=== PATIENT | female | born 1940 | race Hispanic/Latino ===

== ENCOUNTER 2019-05-04 17:35 | Observation (INO) | payer MEDICARE ==
[2019-05-04 18:04] LABS: #Eosinphils 0.5 thou/uL (0.0-0.7); #Monocytes 0.8 thou/uL (0.11-0.59); #Neutrophils 3.3 thou/uL (1.40-6.50); %Basophils 0.4 % (0.0-1.0); %Eosinophils 5.5 % (0.0-10.0); %Lymphocytes 46.8 % (21.0-51.0); %Monocytes 9.2 % (0.0-10.0); %Neutrophils 38.2 % (42.0-75.0); Hemoglobin 14.8 g/dL (12.0-16.0); Mean Corpuscular HGB CONC 35.2 g/dL (32.0-36.0); Mean Corpuscular Hemoglobin 31.2 pg (27.0-31.0); Mean Corpuscular Volume 88.5 fL (78.0-98.0); Mean Platelet Volume 9.8 fL (7.4-10.4); Platelet Count 194 thou/uL (130-400); RBC Distribution Width 12.2 % (11.5-14.5); Red Blood Cell (RBC) Count 4.74 mill/uL (4.20-5.40); White Blood Cell (WBC) Count 8.5 thou/uL (4.8-10.8)
--- NOTE | 2019-05-04 18:22 | RAD ---
Chest one view HISTORY: Chest pain. COMPARISON: 10/11/2016. FINDINGS: Cardiac silhouette is magnified by projection. Pulmonary vasculature is unremarkable. Media stinum is midline with aortic calcification. No lobar consolidation or evidence of pneumothorax. Soft tissues prominence over the right paratracheal level of the upper mediastinum is stable on exams dating back to 2012. IMPRESSION: No active cardiopulmonary abnormalities are demonstrated. Atherosclerosis.
[2019-05-04 18:23] LABS: CK (CPK) 82 U/L (29-168); Lipase 56 U/L (8-78)
[2019-05-04 18:30] LABS: ALT (SGPT) 18 U/L (8-55); AST (SGOT) 22 U/L (5-34); Albumin 4.7 g/dL (3.4-4.8); Alkaline Phosphatase 220 U/L (40-110); Anion Gap 19 mmol/L (10-20); BUN (Urea Nitrogen) 21 mg/dL (9.8-20.1); Bilirubin, Total 0.4 mg/dL (0.2-1.2); Calc. Creatinine Clearance 0 mL/min (70-130); Calcium 9.5 mg/dL (7.8-10.44); Carbon Dioxide 19 mmol/L (23-31); Chloride 106 mmol/L (98-107); Estimated GFR-MDRD 47; Globulin 3.5 g/dL (2.4-3.5); Glucose 143 mg/dL (83-110); Potassium 3.7 mmol/L (3.5-5.1); Protein, Total 8.2 g/dL (6.0-8.3); Sodium 140 mmol/L (136-145)
[2019-05-04 19:54] LABS: Bilirubin Negative (Negative); Blood, Urine Negative (Negative); Clarity Clear (Clear); Glucose, Urine (Dipstick) Normal (Negative); Leukocyte 75 Leu/uL (Negative); Nitrite Negative (Negative); Protein, Urine (Dipstick) 20 mg/dL (Neg-Trace); RBC/HPF 0-3 HPF (0-3); Squamous Epithelial 0-3 HPF (0-3); Urobilinogen Normal mg/dL (Less than 2)
[2019-05-04 19:55] LABS: Bacteria/HPF 1+ HPF (None Seen)
[2019-05-04] MEDS ORDERED: Acetaminophen 500 MG TAB ONE (21:06)
[2019-05-04 21:27] LABS: Troponin I 0.033 ng/mL (< 0.028)
[2019-05-04] MEDS ORDERED: Nitroglycerin 2% Ointment 1 INCH/1 GM Packet ONE (21:46)
[2019-05-04] MEDS ORDERED: Aspirin Chewable 81 MG TAB ONE (21:46)
[2019-05-04] MEDS ORDERED: cefTRIAXone\\ROCEPHIN 2 GM VIAL ONE (22:32)
[2019-05-04] MEDS ORDERED: Ondansetron ODT 4 MG TAB SL PRN (23:13)
[2019-05-04] MEDS ORDERED: Ondansetron PF 4 MG/2 ML Vial IVP PRN (23:13)
[2019-05-04 23:22] VITALS: BMI 23.6
[2019-05-04] MEDS ORDERED: cloNIDine 0.1 MG TAB PO SCH (23:45)
[2019-05-05 00:03] LABS: Troponin I 0.015 ng/mL (< 0.028)
[2019-05-05] MEDS ORDERED: Ondansetron PF 4 MG/2 ML Vial IVP PRN (01:05)
[2019-05-05] MEDS ORDERED: Ondansetron ODT 4 MG TAB PO PRN (01:05)
[2019-05-05] MEDS ORDERED: Sodium Chloride 0.9% 1,000 ML IV SCH (01:15)
--- NOTE | 2019-05-05 02:42 | HP ---
TIME OF ASSESSMENT: 2300 hours. CHIEF COMPLAINT: Chest pain. HISTORY OF PRESENT ILLNESS: Ms. Melton is a pleasant 79-year-old woman, who presented to the emergency department today due to complaints of substernal chest pain. The patient states that this started yesterday evening while she was watching TV. She reports a pressure in the center of her chest. She thought it might be gas, therefore, she drinks some sparkling water. It seem to ease slightly. Today, the patient states that the pain has been persistent, but intermittent. She also reports having some associated shortness of breath with exertion. She has noted throughout the day that any time she eats or drinks, she experiences discomfort in the center of her chest as if she is choking and it takes her breath away. The patient states that due to that reason, she has not had very much to eat or drink today. She states yesterday she was able to have pork chop dinner without any trouble swallowing. The patient states that on occasion for the last several months, she has had some issues with dysphagia. Denies any regurgitation of food. Denies any nausea or vomiting. Has an occasional cough, but denies any hemoptysis or sputum. No recent fevers, chills, or sweats. Denies any abdominal pain or cramping. She has been moving her bowels as normal. Denies any urinary symptoms. In the emergency department, she underwent an EKG which demonstrated sinus tachycardia with a heart rate of 103. She was noted to have PACs. ST segments and T-waves were normal. She had a chest x-ray done, which showed no intrathoracic abnormalities. She had urinalysis done and noted to have UTI, therefore, started on Rocephin. The patient had a significantly elevated blood pressure of 229/95. She was given Nitro-Bid, as well as aspirin 324 mg and 1 g of Tylenol. Her blood pressure did improve to 159/76. She is being admitted for ACS rule out. PAST MEDICAL HISTORY: 1. Peripheral arterial disease. 2. Hypertension. 3. History of TIA. 4. Hyperlipidemia. 5. Finch's palsy. 6. Anxiety. PAST SURGICAL HISTORY: 1. Stents in the left leg in October 2013. 2. Blunt procedure in July 2014 of the left leg due to recurring blockage. SOCIAL HISTORY: The patient lives with her family. Denies any alcohol use. She previously smoked cigarettes. Denies any drug use. ALLERGIES: NO KNOWN DRUG ALLERGIES. CURRENT MEDICATIONS: 1. Clonidine. 2. Spironolactone. 3. Amlodipine. 4. Clopidogrel. 5. Pravastatin. 6. Aspirin. 7. Lasix. PHYSICAL EXAMINATION: GENERAL: The patient appears well developed, well nourished, is in no acute distress. VITAL SIGNS: Temperature 97.9, pulse 73, respirations 12, O2 saturation 97% on room air, and blood pressure 179/82. HEENT: Normocephalic and atraumatic. Pupils are equal, round, and reactive to light. Sclerae icterus. Oropharynx is clear. NECK: Supple. Full range of motion. No lymphadenopathy. LUNGS: Clear to auscultation. CARDIAC: Regular rate and rhythm. ABDOMEN: Soft, nontender, and nondistended. Normoactive bowel sounds present. No guarding or rigidity. EXTREMITIES: No lower leg swelling or edema. NEUROLOGIC: Alert and oriented x3. SKIN: Warm and dry. LABORATORY DATA: White count 8.5, hemoglobin 14.8, hematocrit 42, platelets 194 , neutrophils 38.2. Sodium 140, potassium 3.7, BUN 21, creatinine 1.12, GFR 47, glucose 143, calcium 9.5, total bilirubin 0.4, AST 22, ALT 18, alkaline phosphatase 220, CK 82, troponin negative, second troponin 0.033, third troponin 0.015. BNP 97.6, albumin 4.7, lipase 56. Urinalysis notable for 75 leukocyte esterase, 7 to 10 white blood cells, and 1+ bacteria. IMAGING DATA: As mentioned above in HPI. IMPRESSION AND PLAN: Ms. Melton is a pleasant 79-year-old woman, who is being admitted for the following. 1. Acute coronary syndrome rule out. The patient is complaining of substernal chest pain that started yesterday evening, but in retrospect, she states that has been going on intermittently for the last several days along with some shortness of breath on exertion. The patient seems to feel that the pain is exacerbated with eating or drinking and states that it feels like something is stuck in her chest. Troponins have been trended. She has a history of coronary artery disease, hyperlipidemia and hypertension, therefore, is at high risk. It has been over two years since her last stress test. We will go ahead and order stress test for the morning. BNP normal. However, the patient did report some shortness of breath with exertion. An echo has been requested. Chest x-ray without any acute changes. It appears there were previously seen soft tissue prominence over the right peritracheal level of the upper mediastinum, which is stable compared to studies done in 2013. Further imaging to be decided by Day Team. I did place a consultation for speech eval to assess her swallowing. She may benefit from barium swallow study given her complaints of dysphagia and odynophagia. 2. Hypertension. The patient has not received her home medications this evening. We will reconcile her home medications and monitor blood pressure. P.r.n. medications to be used for further control of her blood pressure. 3. Hyperlipidemia. Resume home medications once verified. 4. Gastrointestinal prophylaxis with famotidine. 5. Urinary tract infection. Urine culture pending. We will continue antibiotics. 6. Deep venous thrombosis prophylaxis with mechanical SCDs. 7. Code status full. Surrogate decision maker is her son, Yunier Melton. The patient's case was discussed with Dr. Robertson, who agrees with plan of care as described above. Job ID: [id number] MTDD
[2019-05-05 03:12] LABS: #Basophils 0.1 thou/uL (0.0-0.2); #Eosinphils 0.4 thou/uL (0.0-0.7); #Lymphocytes 3.1 thou/uL (1.20-3.40); #Monocytes 0.8 thou/uL (0.11-0.59); #Neutrophils 3.1 thou/uL (1.40-6.50); %Basophils 0.9 % (0.0-1.0); %Eosinophils 5.3 % (0.0-10.0); %Lymphocytes 41.6 % (21.0-51.0); %Monocytes 10.1 % (0.0-10.0); %Neutrophils 42.2 % (42.0-75.0); Hemoglobin 13.3 g/dL (12.0-16.0); Mean Corpuscular HGB CONC 35.7 g/dL (32.0-36.0); Mean Corpuscular Hemoglobin 31.7 pg (27.0-31.0); Mean Platelet Volume 9.2 fL (7.4-10.4); Platelet Count 181 thou/uL (130-400); RBC Distribution Width 12.3 % (11.5-14.5); Red Blood Cell (RBC) Count 4.19 mill/uL (4.20-5.40); White Blood Cell (WBC) Count 7.4 thou/uL (4.8-10.8)
[2019-05-05 03:37] LABS: Troponin I 0.011 ng/mL (< 0.028)
[2019-05-05 03:39] LABS: Anion Gap 14 mmol/L (10-20); BUN (Urea Nitrogen) 19 mg/dL (9.8-20.1); Calc. Creatinine Clearance 51 mL/min (70-130); Calcium 8.9 mg/dL (7.8-10.44); Carbon Dioxide 22 mmol/L (23-31); Cardiac Risk 3.2 (Less than 4.5); Chloride 109 mmol/L (98-107); Cholesterol 150 mg/dl (< 200 Desired); Estimated GFR-MDRD 60; Glucose 114 mg/dL (83-110); HDL Cholesterol 47 mg/dL (>60 Neg Risk); LDL Cholesterol, Calculated 82 mg/dL; Potassium 3.5 mmol/L (3.5-5.1); Sodium 141 mmol/L (136-145); Triglycerides 107 mg/dL (Less than 150)
[2019-05-05] MEDS ORDERED: Aspirin 325 MG TAB PO SCH (08:00)
[2019-05-05] MEDS ORDERED: Furosemide 20 MG TAB PO SCH (09:00)
[2019-05-05] MEDS ORDERED: Pravastatin Sodium 20 MG TAB PO SCH (09:00)
[2019-05-05] MEDS ORDERED: Lorazepam 2 MG/ML VIAL SLOW IVP SCH (09:00)
[2019-05-05] MEDS ORDERED: Aspirin 81 mg Enteric Coated Tablet PO SCH (09:00)
[2019-05-05] MEDS ORDERED: Amlodipine 10 MG TAB PO SCH (09:00)
[2019-05-05] MEDS ORDERED: Gabapentin 300 MG CAP PO SCH (09:00)
[2019-05-05] MEDS ORDERED: Lisinopril 20 MG TAB PO SCH (09:00)
[2019-05-05] MEDS ORDERED: Famotidine/PF 20 mg/2ml Vial SLOW IVP SCH (09:00)
[2019-05-05] MEDS ORDERED: cloNIDine 0.1 MG TAB PO SCH (09:00)
[2019-05-05 11:50] VITALS: BP 141/64; TEMP 98
[2019-05-05] MEDS ORDERED: ADENOSINE 60 MG/20 ML VIAL ONE (15:20)
--- NOTE | 2019-05-05 15:57 | NM ---
CARDIAC SPECT: HISTORY: An 79-year-old female with chest pain, coronary artery disease, stent placement, hypertensio n, and dyslipidemia and peripheral artery disease. TECHNIQUE: A myocardial perfusion scan was performed using the single-isotope 1-day protocol with Technetium 99m sestamibi. Nine mCi were injected intravenously for the rest exam followed by 28 mCi for the stress study. Pharmacologic stress with adenosine is monitored and interpreted by Dr. Alexis. FINDINGS: Homogeneous tracer distribution is seen in the myocardial segments on stress and rest images without fixed or reversible defects. GATED SPECT LVEF: 82%. WALL MOTION EXAM: Normal. IMPRESSION: Normal myocardial perfusion scan. POS: TPC
[2019-05-05] MEDS ORDERED: Mirtazapine 15 MG TAB PO SCH (21:00)
[2019-05-05] MEDS ORDERED: Non-Formulary Item 1 EACH (Amlodipine Besylate/Benazepril [Amlodipine Besylate/Benazepril PO SCH (21:00)
[2019-05-05] MEDS ORDERED: cefTRIAXone\\ROCEPHIN 2 GM in Sodium Chloride 0.9% 100 ML IVPB SCH (22:00)
--- NOTE | 2019-05-06 12:21 | DIS ---
DATE OF ADMISSION: 05/04/2019 DATE OF DISCHARGE: 05/05/2019 PRIMARY CARE PROVIDER: Hermilo Elmore MD DISCHARGE DIAGNOSES: 1. Chest pain. 2. Chest pain most likely secondary to musculoskeletal etiology. CONDITION OF PATIENT ON THE DAY OF DISCHARGE: Stable. I assessed Ms. Melton on the day of discharge. She denies any chest pain or shortness of breath. Vital signs are stable. S1 and S2 are heard, regular. Lungs are clear to auscultation bilaterally. HOSPITAL COURSE: Ms. Melton is a pleasant 79-year-old lady, who was admitted to [facility] on May 04, 2019, for chest pain. Please refer to Ms. Alarcon's history and physical note, dated May 04, 2019, for further details. She was also diagnosed with urinary tract infection. She was treated with antibiotics. Chest pain resolved. She had a nuclear stress test, which was normal. Left ventricular ejection fraction was 82%. She also had pulmonary embolism ruled out with a negative D-dimer. She was discharged home in a stable condition. On the day of discharge, she has white count of 7400, hemoglobin 13.3, and platelet count 181,000. Sodium 141, potassium 3.5, and creatinine 0.91. TSH was normal during this hospitalization. Fasting lipid profile showed triglycerides 107, cholesterol 150, LDL cholesterol 82, and HDL cholesterol 47. Many thanks for allowing me to participate in your patient's care. Please feel free to contact me with any questions or concerns. DISCHARGE DESTINATION: Home. Job ID: [id number] MTDD
== END 2019-05-05 19:33 | disposition home or self-care (01) ==
LOC: ERS 17:35 → 2SW 23:12
PROVIDERS: ADMIT Internal Medicine; ATTEND Internal Medicine
DX: R07.9 Chest pain, unspecified (principal); N39.0 Urinary tract infection, site not specified; E78.5 Hyperlipidemia, unspecified; I73.9 Peripheral vascular disease, unspecified; I10 Essential (primary) hypertension; F41.9 Anxiety disorder, unspecified; Z79.02 Long term (current) use of antithrombotics/antiplatelets; Z79.82 Long term (current) use of aspirin; Z79.899 Other long term (current) drug therapy; Z86.73 Personal history of transient ischemic attack (TIA), and cerebral infarction without residual deficits; Z87.891 Personal history of nicotine dependence
CPT/HCPCS: 71045; 78452; 80048; 80053; 80061; 82550; 83690; 83735; 83880; 84443; 84484 ×3; 85025 ×2; 85379; 87077; 87086; 93005; 93017; 93306; 96365; 99285; A9500; 36415; 81003; 81015; G0378; J0153; J0696; J2060; S0028

== ENCOUNTER 2019-05-30 12:27 | Outpatient (CLI) | payer MEDICARE ==
--- NOTE | 2019-05-30 13:15 | CT ---
CT SCAN OF THE CHEST WITHOUT IV CONTRAST FOR LUNG CANCER SCREENING: HISTORY: A 79-year-old female with 50-plus years of smoking. Quit 6 years ago. FINDINGS: There is a 6 mm ground-glass nodule in the right lung base. No pleural or pericardial effusions are seen. There are vascular calcifications within an ectatic de scending thoracic aorta. No thoracic aortic aneurysm is seen. There are degenerative changes in the spine. IMPRESSION: Lung RADS 2, benign. RECOMMENDATION: Continue annual screening with LDCT in 12 months. POS: FRANCISCO
== END 2019-05-30 12:28 | disposition home or self-care (01) ==
LOC: CT 12:27
PROVIDERS: ATTEND Family Medicine
DX: Z12.2 Encounter for screening for malignant neoplasm of respiratory organs (principal); Z87.891 Personal history of nicotine dependence
CPT/HCPCS: G0297

== ENCOUNTER 2019-06-14 02:30 | Emergency (ER) | payer MEDICARE ==
[2019-06-14] MEDS ORDERED: Ketorolac Tromethamine 30 MG/ML VIAL ONE (02:46)
[2019-06-14 03:14] LABS: #Basophils 0.1 thou/uL (0.0-0.2); #Eosinphils 0.3 thou/uL (0.0-0.7); #Lymphocytes 2.6 thou/uL (1.20-3.40); #Monocytes 0.7 thou/uL (0.11-0.59); #Neutrophils 3.6 thou/uL (1.40-6.50); %Basophils 0.8 % (0.0-1.0); %Eosinophils 4.4 % (0.0-10.0); %Lymphocytes 36.2 % (21.0-51.0); %Monocytes 9.1 % (0.0-10.0); %Neutrophils 49.5 % (42.0-75.0); Hemoglobin 13.9 g/dL (12.0-16.0); Mean Corpuscular HGB CONC 35.7 g/dL (32.0-36.0); Mean Corpuscular Hemoglobin 32.3 pg (27.0-31.0); Mean Corpuscular Volume 90.3 fL (78.0-98.0); Mean Platelet Volume 9.6 fL (7.4-10.4); Platelet Count 166 thou/uL (130-400); RBC Distribution Width 12.4 % (11.5-14.5); White Blood Cell (WBC) Count 7.2 thou/uL (4.8-10.8)
[2019-06-14] MEDS ORDERED: Pantoprazole 40 MG VIAL ONE (03:17)
[2019-06-14 03:31] LABS: ALT (SGPT) 12 U/L (8-55); AST (SGOT) 15 U/L (5-34); Albumin 4.4 g/dL (3.4-4.8); Alkaline Phosphatase 183 U/L (40-110); Anion Gap 12 mmol/L (10-20); BUN (Urea Nitrogen) 27 mg/dL (9.8-20.1); Bilirubin, Total 0.3 mg/dL (0.2-1.2); Calc. Creatinine Clearance 0 mL/min (70-130); Calcium 9.1 mg/dL (7.8-10.44); Carbon Dioxide 22 mmol/L (23-31); Chloride 107 mmol/L (98-107); Estimated GFR-MDRD 38; Globulin 2.8 g/dL (2.4-3.5); Glucose 120 mg/dL (83-110); Lipase 35 U/L (8-78); Potassium 4.3 mmol/L (3.5-5.1); Protein, Total 7.2 g/dL (6.0-8.3); Sodium 137 mmol/L (136-145)
--- NOTE | 2019-06-14 07:53 | ULT ---
PRELIMINARY REPORT/[facility]/AFTER HOURS PROCEDURE LIMITED ABDOMINAL ULTRASOUND 06/14/2019 3:03 a.m. INDICATION: Right upper quadrant pain. TECHNIQUE: Real-time sonographic imaging of the right upper quadrant was performed with image documentation. COMPARISON: None. FINDINGS: Pancreas is poorly seen. Liver is heterogeneously increased in echogenicity with loss of internal ar chitecture. Gallbladder contains endoluminal echogenicities consistent with gallstones. A 1.5 x 0.9 cm irregular hypoechoic region along the dependent wall protrudes into the lumen. This is nonsha dowing. The wall of the gallbladder is upper limits of normal in thickness measuring 2.9 mm. There is trace pericholecystic fluid. There is no intrahepatic or extrahepatic bile-duct dilatation; common bile duct diameter of 3.4 mm wa s obtained. Right kidney measures 9.3 x 4.1 x 4.0 cm and shows no hydronephrosis or mass. IMPRESSION: 1. Cholelithiasis. A nonspecific lesion along the posterior wall is of uncertain significance. The possibility of a polypoid mass cannot be excluded. 2. Increased hepatic echogenicity. Leading consideration is steatosis. Please correlate with LFTs. 3. Poor visualization of the pancreas. ELECTRONICALLY SIGNED BY: Evan Galaviz DO Jun 14, 2019 3:55:13 AM PHARMACY RESIDENT This report is intended for review by the ordering physician only, in accordance of law. If you recei ve this report in error, please call [facility] at [phone]. FINAL REPORT RIGHT UPPER QUADRANT ULTRASOUND: PROVIDED CLINICAL HISTORY: Right upper quadrant pain. COMPARISON: 09/14/2015 FINDINGS/IMPRESSION: I agree with the preliminary interpretation given by [facility]. CODE QA Transcribed Date/Time: 06/14/2019 8:12 AM
== END 2019-06-14 04:14 | disposition home or self-care (01) ==
LOC: ERS 02:30
DX: K80.20 Calculus of gallbladder without cholecystitis without obstruction (principal); E78.5 Hyperlipidemia, unspecified; E78.00 Pure hypercholesterolemia, unspecified; F41.9 Anxiety disorder, unspecified; Z87.891 Personal history of nicotine dependence; Z86.73 Personal history of transient ischemic attack (TIA), and cerebral infarction without residual deficits; Z79.899 Other long term (current) drug therapy; Z79.82 Long term (current) use of aspirin
CPT/HCPCS: 36415; 76705; 80053; 83690; 85025; 93005; 96372; C9113; J1885

== ENCOUNTER 2019-07-16 06:40 | Outpatient (CLI) | payer MEDICARE ==
[2019-07-16 11:56] LABS: #Basophils 0.1 thou/uL (0.0-0.2); #Eosinphils 0.5 thou/uL (0.0-0.7); #Lymphocytes 3.1 thou/uL (1.20-3.40); #Monocytes 0.8 thou/uL (0.11-0.59); #Neutrophils 4.2 thou/uL (1.40-6.50); %Basophils 1.2 % (0.0-1.0); %Eosinophils 5.9 % (0.0-10.0); %Lymphocytes 35.5 % (21.0-51.0); %Monocytes 9.3 % (0.0-10.0); %Neutrophils 48.1 % (42.0-75.0); Hemoglobin 13.9 g/dL (12.0-16.0); Mean Corpuscular Hemoglobin 32.1 pg (27.0-31.0); Mean Corpuscular Volume 91.7 fL (78.0-98.0); Mean Platelet Volume 10.7 fL (7.4-10.4); Platelet Count 195 thou/uL (130-400); RBC Distribution Width 12.2 % (11.5-14.5); Red Blood Cell (RBC) Count 4.33 mill/uL (4.20-5.40); White Blood Cell (WBC) Count 8.7 thou/uL (4.8-10.8)
[2019-07-16 12:31] LABS: ALT (SGPT) 12 U/L (8-55); AST (SGOT) 17 U/L (5-34); Albumin 4.4 g/dL (3.4-4.8); Alkaline Phosphatase 178 U/L (40-110); Anion Gap 14 mmol/L (10-20); BUN (Urea Nitrogen) 27 mg/dL (9.8-20.1); Bilirubin, Direct 0.2 mg/dL (0.1-0.3); Bilirubin, Total 0.4 mg/dL (0.2-1.2); Calc. Creatinine Clearance 0 mL/min (70-130); Calcium 9.7 mg/dL (7.8-10.44); Carbon Dioxide 21 mmol/L (23-31); Chloride 109 mmol/L (98-107); Estimated GFR-MDRD 44; Glucose 83 mg/dL (83-110); Potassium 4.8 mmol/L (3.5-5.1); Protein, Total 7.4 g/dL (6.0-8.3); Sodium 139 mmol/L (136-145)
--- NOTE | 2019-07-17 15:55 | EKG ---
Test Reason : Blood Pressure : / mmHG Vent. Rate : 066 BPM Atrial Rate : 066 BPM P-R Int : 164 ms QRS Dur : 078 ms QT Int : 438 ms P-R-T Axes : 077 082 073 degrees QTc Int : 459 ms Normal sinus rhythm Cannot rule out Anterior infarct , age undetermined Abnormal ECG Confirmed by ISAURO CLEMENT ([id number]) on 07/17/2019 3:54:59 PM Referred By: KAHLIL Confirmed By:ISAURO CLEMENT
== END 2019-07-16 06:41 | disposition home or self-care (01) ==
LOC: LABBT 06:40
PROVIDERS: ATTEND Surgery
DX: Z01.818 Encounter for other preprocedural examination (principal); K80.20 Calculus of gallbladder without cholecystitis without obstruction
CPT/HCPCS: 80053; 80076; 85025; 93005; 93010

== ENCOUNTER 2019-07-23 05:49 | Day surgery (SDC) | payer MEDICARE ==
[2019-07-16 09:54] VITALS: BMI 27.3
[2019-07-23] MEDS ORDERED: ceFOXitin 2 GM/50 ML Duplex BAG ONE (07:36)
[2019-07-23] MEDS ORDERED: Sodium Chloride 0.9% 100 ML ONE (07:36)
[2019-07-23] MEDS ORDERED: Bupivacaine 0.25% HCL 30 ML VIAL ONE (08:43)
[2019-07-23] MEDS ORDERED: Iothalamate Meglumine 60% 50 ML VIAL FS ONE (08:43)
[2019-07-23] MEDS ORDERED: Lidocaine 1% w/Epinephrine 1:100K 20 ML VIAL ONE (08:43)
[2019-07-23] MEDS ORDERED: HYDROmorphone 0.5 MG/0.5 ML SYRINGE ONE (08:44)
[2019-07-23] MEDS ORDERED: Fentanyl 100 MCG/2 ML VIAL ONE ×2 (08:44→10:45)
[2019-07-23] MEDS ORDERED: SUGAMMADEX SODIUM 200 MG/2 ML VIAL ONE (10:06)
[2019-07-23] MEDS ORDERED: Esmolol 100 MG/10 ML VIAL ONE (10:16)
[2019-07-23] MEDS ORDERED: Dexamethasone 20 MG/5 ML VIAL ONE (10:16)
[2019-07-23] MEDS ORDERED: Lidocaine 1% PF 5 ML VIAL ONE (10:16)
[2019-07-23] MEDS ORDERED: Glycopyrrolate 0.2 MG/ML 5 ML SYRINGE ONE (10:16)
[2019-07-23] MEDS ORDERED: Rocuronium Bromide 10 MG/ML (10ML VIAL) ONE (10:16)
[2019-07-23] MEDS ORDERED: PROPOFOL 200 MG/20 ML VIAL ONE (10:16)
[2019-07-23] MEDS ORDERED: Ketorolac Tromethamine 30 MG/ML VIAL ONE (10:16)
--- NOTE | 2019-07-23 10:24 | RAD ---
XR Cholangiogram in Surgery History: Intraoperative cholangiogram Comparison: None. Findings: Single spot images obtained. There is contrast in the cystic duct and common bile duct. No intrahepatic biliary dilatation. Impression: Fluoroscopy for surgical purposes.
[2019-07-23] MEDS ORDERED: HYDROcodone/Acetaminophen 5/325 mg Tablet ONE (12:32)
--- NOTE | 2019-07-23 12:36 | OP ---
DATE OF PROCEDURE: 07/23/2019 PREOPERATIVE DIAGNOSIS: Symptomatic cholelithiasis with elevated liver function. PROCEDURE PERFORMED: Laparoscopic cholecystectomy with intraoperative cholangiogram. INDICATIONS: The patient is a 79-year-old female, who is having intermittent right upper quadrant pain. Ultrasound showed gallstones. She had an elevated alkaline phosphatase. FINDINGS: Negative cholangiogram, free flow into the duodenum. No filling defects. Kind of a contracted small gallbladder. DESCRIPTION OF PROCEDURE: After informed consent was obtained, the patient was taken to the operating room, given general endotracheal anesthesia, placed in the supine position. Abdomen was prepped and draped in usual fashion. Local anesthesia infiltrated subcutaneously and deep. A subumbilical incision was performed, subcu divided sharply. The fascia was grasped with 2 stay sutures of 0 Vicryl placed in each side of midline. Midline incised. Digital palpation revealed no local adhesions. A blunt 12-mm trocar inserted. Pneumoperitoneum was created to a pressure of 15 mmHg. A 0-degree laparoscope inserted under direct vision. Three 5-mm ports were placed subcostally. Gallbladder grasped and advanced superiorly. Peritoneum lysed distally to expose the cystic duct and cystic artery in critical view. The clip was placed at the base of the gallbladder on the cystic duct. An incision made in the cystic duct. An Arrow cholangiocatheter inserted. Intraoperative cholangiogram was performed utilizing fluoroscopy. This showed free flow into the duodenum. No filling defects. Normal intrahepatic ducts. The catheter removed. The cystic duct triply ligated and divided. The cystic artery had two branches that were ligated with hemoclips and divided. The gallbladder was removed from its fossa utilizing electrocautery, removed from the abdomen through the umbilical port. Hemostasis was assured. Trocars and retractors were removed. The fascia was closed with interrupted 0 Vicryl suture. Skin closed with interrupted 4-0 Rapide. Dermabond applied. The patient tolerated the procedure well, transferred to Recovery in good condition. Sponge and needle count verified correct x2. Job ID: [id number]
== END 2019-07-23 13:30 | disposition home or self-care (01) ==
LOC: SDC 05:49
PROVIDERS: ATTEND Surgery
PROC: 0FT44ZZ Resection of Gallbladder, Percutaneous Endoscopic Approach (ICD-10-PCS; principal; 2019-07-23)
PROC: BF121ZZ Fluoroscopy of Gallbladder using Low Osmolar Contrast (ICD-10-PCS; 2019-07-23)
DX: K80.10 Calculus of gallbladder with chronic cholecystitis without obstruction (principal); I10 Essential (primary) hypertension; E78.5 Hyperlipidemia, unspecified; Z79.82 Long term (current) use of aspirin; Z79.899 Other long term (current) drug therapy
CPT/HCPCS: 47532; 88304; J0694; J1100; J1170; J1885; J2001; J2704; J3010; J3490; S0020

== ENCOUNTER 2020-02-10 08:34 | Outpatient (CLI) | payer MEDICARE ==
--- NOTE | 2020-02-10 10:08 | CT ---
CT abdomen and pelvis noncontrast HISTORY: Right upper quadrant pain. Prior cholecystectomy. COMPARISON: 12/21/2014. FINDINGS: Calcified granulomata at the lung bases consistent with healed granulomatous disease. IV contrast was withheld due to renal insufficiency. Each renal collecting system, ureter, and urinary bladder are decompressed. There is prominent calcif ication throughout the arterial structures. Vascular stents at the right iliac and left femoral vessels. Metallic clips at the gallbladder fossa. Solid organs are intact. Lack of contrast limits evaluation of the soft tissues. No evidence of bowel obstruction or inflammat ion. Prominent degenerative changes throughout the lumbar spine, with central canal stenosis most severe a t the L3-4 level. IMPRESSION : Status post cholecystectomy. No acute abnormalities are demonstrated to explain right upper quadrant pain. Prominent atherosclerosis. Renal insufficiency precluded IV contrast administration.
== END 2020-02-10 08:35 | disposition home or self-care (01) ==
LOC: BICCT 08:34
PROVIDERS: ATTEND Family Medicine
DX: R10.11 Right upper quadrant pain (principal); I70.0 Atherosclerosis of aorta; N28.9 Disorder of kidney and ureter, unspecified; Z90.49 Acquired absence of other specified parts of digestive tract
CPT/HCPCS: 74176; 82565

== ENCOUNTER 2020-04-26 20:36 | Inpatient (IN) | payer MEDICARE ==
[~2020-04-26 20:36] MED LIST: Iopamidol-370 76% 500 ML 1 ML ONE
--- NOTE | 2020-04-26 21:02 | RAD ---
Chest AP view INDICATION: Chest pain with heart palpitations COMPARISON: Prior exam dated May 04, 2019 FINDINGS: Lungs: Chronic lung changes are stable. Cardiac silhouette: Mild cardiomegaly persists. Pulmonary vasculature: Normal Pleural spaces: No pleural effusion or pneumothorax is demonstrated. Upper abdomen: No abnormality seen. Osseous structures: No acute osseous abnormality. Additional findings: None. IMPRESSION: No acute abnormality. Stable chronic findings as above.
[2020-04-26] MEDS ORDERED: Digoxin 0.5 MG/2 ML AMP ONE (21:12)
[2020-04-26] MEDS ORDERED: Magnesium 2 GM/50 ML BAG (IN WATER) ONE (21:12)
[2020-04-26] MEDS ORDERED: Aspirin 325 MG TAB ONE (21:12)
[2020-04-26 21:31] LABS: #Basophils 0.1 thou/uL (0.0-0.2); #Eosinphils 0.3 thou/uL (0.0-0.7); #Monocytes 0.9 thou/uL (0.11-0.59); #Neutrophils 5.7 thou/uL (1.40-6.50); %Basophils 0.5 % (0.0-1.0); %Eosinophils 3.3 % (0.0-10.0); %Lymphocytes 30.1 % (21.0-51.0); %Monocytes 9.2 % (0.0-10.0); %Neutrophils 56.9 % (42.0-75.0); Mean Corpuscular HGB CONC 34.7 g/dL (32.0-36.0); Mean Corpuscular Hemoglobin 31.4 pg (27.0-31.0); Mean Corpuscular Volume 90.5 fL (78.0-98.0); Mean Platelet Volume 10.1 fL (7.4-10.4); Platelet Count 195 thou/uL (130-400); RBC Distribution Width 12.2 % (11.5-14.5); Red Blood Cell (RBC) Count 5.09 mill/uL (4.20-5.40)
[2020-04-26 21:48] LABS: ALT (SGPT) 22 U/L (8-55); AST (SGOT) 25 U/L (5-34); Albumin 4.5 g/dL (3.4-4.8); Alkaline Phosphatase 187 U/L (40-110); Anion Gap 17 mmol/L (10-20); BUN (Urea Nitrogen) 16 mg/dL (9.8-20.1); Bilirubin, Total 0.4 mg/dL (0.2-1.2); CK (CPK) 130 U/L (29-168); Calc. Creatinine Clearance 0 mL/min (70-130); Calcium 9.4 mg/dL (7.8-10.44); Carbon Dioxide 22 mmol/L (23-31); Chloride 107 mmol/L (98-107); Globulin 3.7 g/dL (2.4-3.5); Glucose 124 mg/dL (83-110); Lipase 34 U/L (8-78); Potassium 3.3 mmol/L (3.5-5.1); Protein, Total 8.2 g/dL (6.0-8.3); Sodium 143 mmol/L (136-145)
[2020-04-26] MEDS ORDERED: niCARdipine 20MG In NaCl 20 MG/200 ML BAG ONE (21:48)
[2020-04-26 22:02] LABS: Bilirubin Negative (Negative); Blood, Urine Negative (Negative); Clarity Clear (Clear); Glucose, Urine (Dipstick) Normal (Negative); Ketone, Urine Negative (Negative); Leukocyte Negative Leu/uL (Negative); Nitrite Negative (Negative); Protein, Urine (Dipstick) 20 mg/dL (Neg-Trace); Specific Gravity, Urine 1.006 (1.002-1.036); Urobilinogen Normal mg/dL (Less than 2); pH, Urine 7.5 (5.0-9.0)
--- NOTE | 2020-04-26 22:52 | CT ---
CTA Angio Chest W WO Con 04/26/2020 10:30 PM Indication: History of heart palpitations and blacking out Technique: Multiple CTA images were obtained of the thorax with IV contrast. 3-D rendering: MIP silva nstructed images were created and reviewed. Comparison: CT pulmonary lung scan dated May 30, 2019 Findings: Pulmonary arteries: No central or segmental pulmonary embolus is evident. 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 There are prominent vascular calcifications involving the coronary arteries and thoracic aorta. Mediastinum:Normal appearing. No enlarged lymph nodes. Lungs:Stable scattered emphysema. Pleural space: Clear. Upper Abdomen: No acute abnormality. The gallbladder surgically absent. There is diffuse fatty liver . Osseous Structures: No acute osseous abnormality. There is scattered degenerative and osteoarthritic change present. Soft tissues:No abnormality. Other findings:None. Impression: 1. No central or segmental pulmonary embolus. 2. 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 3. Stable scattered emphysema.
[2020-04-27 01:38] LABS: Troponin I 0.055 ng/mL (< 0.028)
[2020-04-27] MEDS ORDERED: hydrALAZINE 20 MG/ML VIAL SLOW IVP PRN ×2 (01:41→03:41)
[2020-04-27] MEDS ORDERED: NIFEdipine XL 60 MG TAB PO SCH ×2 (01:45→09:00)
[2020-04-27] MEDS ORDERED: NIFEdipine XL 30 MG TAB ONE ×2 (02:13→09:00)
[2020-04-27] MEDS ORDERED: HYDROcodone/Acetaminophen 5/325 mg Tablet PO PRN (03:35)
[2020-04-27] MEDS ORDERED: Calcium Carbonate 500 MG ChewTAB PO PRN (03:35)
[2020-04-27] MEDS ORDERED: Acetaminophen 325 MG TAB PO PRN (03:35)
[2020-04-27] MEDS ORDERED: Ondansetron ODT 4 MG TAB PO PRN (03:35)
[2020-04-27] MEDS ORDERED: Acetaminophen 650 MG Suppository PR PRN (03:35)
[2020-04-27] MEDS ORDERED: Ondansetron PF 4 MG/2 ML Vial IVP PRN (03:35)
--- NOTE | 2020-04-27 03:41 | PDOC.HHP ---
Hospitalist HPI - History of Present Illness palpitations History of Present Illness: Case of an 80y/o femal with pmhx of pvd, htn, hld and hx of TIA who comes to hospital due to palpitations. patient states she was on her usual state of health until about 3 months ago when she started to have episodes of palpitations lasting about an hour, she reports that since then those episodes have usually happened once a month both have been increasing in occurrence and duration. she states she decided to come to hospital today because palpitations was lasting longer than usual and it was associated with what she refers episodes of blackout of a few seconds. she came to hospital for evaluation and was diagnosed with afib in rvr for which she was given diltiazem and digoxin iv, her B/P was in the 180s and increased to 260s. patient was started on cardene drip and hospitalist was called for further evaluation. patient denies any sob nausea vomting or diaphoresis does report some chest pressure not pain, and palpitations. Hospitalist ROS - Review of Systems All other systems reviewed; all pertinent +/- noted in HPI/Subj - Medication Medications: Active Medications Generic Name Dose Route Start Last Admin Trade Name Freq PRN Reason Stop Dose Admin Nifedipine 60 mg 04/27/20 01:45 04/27/20 02:18 Nifedipine Xl 60 Mg Tab PO 04/27/20 03:45 60 mg NOW [facility] Hospitalist History - Past Surgical History Other Surgical History: october 2013 stents placed in left leg due to blockage july 2014 balloon to left leg due to reoccuring blockage. - Family History Family History: reports: cardiac disorder, hypertension - Social History Smoking Status: Former smoker Alcohol: reports: None Drugs: reports: none Living Situation: With Family - Exam General Appearance: NAD, awake alert Eye: PERRL, anicteric sclera ENT: normocephalic atraumatic, no oropharyngeal lesions, moist mucosa Neck: supple, symmetric, no JVD, no thyromegaly Heart: RRR, no murmur, no gallops, no rubs Respiratory: CTAB, no wheezes, no rales, no ronchi Gastrointestinal: soft, non-tender, non-distended, normal bowel sounds Extremities: no cyanosis, no clubbing, no edema Skin: normal turgor, no lesions, no rashes Neurological: cranial nerve grossly intact, normal sensation to touch, no weakness Musculoskeletal: normal tone, normal strength, no muscle wasting Psychiatric: normal affect, normal behavior, A&O x 3 Hospitalist Results - Labs Result Diagrams: 04/26/20 21:12 04/26/20 21:11 Lab results: WBC 10.0 thou/uL (4.8-10.8) 04/26/20 21:12 Hgb 16.0 g/dL (12.0-16.0) 04/26/20 21:12 Hct 46.1 % (36.0-47.0) 04/26/20 21:12 MCV 90.5 fL (78.0-98.0) 04/26/20 21:12 Plt Count 195 thou/uL (130-400) 04/26/20 21:12 Neutrophils % 56.9 % (42.0-75.0) 04/26/20 21:12 Sodium 143 mmol/L (136-145) 04/26/20 21:11 Potassium 3.3 mmol/L (3.5-5.1) L 04/26/20 21:11 Chloride 107 mmol/L (98-107) 04/26/20 21:11 Carbon Dioxide 22 mmol/L (23-31) L 04/26/20 21:11 BUN 16 mg/dL (9.8-20.1) 04/26/20 21:11 Creatinine 0.95 mg/dL (0.6-1.1) 04/26/20 21:11 Glucose 124 mg/dL (83-110) H 04/26/20 21:11 Calcium 9.4 mg/dL (7.8-10.44) 04/26/20 21:11 Total Bilirubin 0.4 mg/dL (0.2-1.2) 04/26/20 21:11 AST 25 U/L (5-34) 04/26/20 21:11 ALT 22 U/L (8-55) 04/26/20 21:11 Alkaline Phosphatase 187 U/L (40-110) H 04/26/20 21:11 Creatine Kinase 130 U/L (29-168) 04/26/20 21:11 Troponin I 0.055 ng/mL (< 0.028) H 04/27/20 01:01 B-Natriuretic Peptide 277.3 pg/mL (0-100) H 04/26/20 21:12 Serum Total Protein 8.2 g/dL (6.0-8.3) 04/26/20 21:11 Albumin 4.5 g/dL (3.4-4.8) 04/26/20 21:11 Lipase 34 U/L (8-78) 04/26/20 21:11 Urine Ketones Negative mg/dL (Negative) 04/26/20 21:44 Urine Blood Negative (Negative) 04/26/20 21:44 Urine Nitrite Negative (Negative) 04/26/20 21:44 Ur Leukocyte Esterase Negative Flavio/uL (Negative) 04/26/20 21:44 Hospitalist H&P A/P - Problem (1) Atrial fibrillation with rapid ventricular response Code(s): I48.91 - UNSPECIFIED ATRIAL FIBRILLATION Status: Acute (2) Dyslipidemia Code(s): E78.5 - HYPERLIPIDEMIA, UNSPECIFIED Status: Chronic (3) HTN (hypertension) Code(s): I10 - ESSENTIAL (PRIMARY) HYPERTENSION Status: Chronic (4) Peripheral vascular disease Code(s): I73.9 - PERIPHERAL VASCULAR DISEASE, UNSPECIFIED Status: Chronic (5) Hypertensive emergency Code(s): I16.1 - HYPERTENSIVE EMERGENCY Status: Resolved - Plan Plan: Case of an 80y/o female with the stated pmhx who present to hospital with hypertenive emergency and afib in rvr hypertensive urgency with heart as target - systolic b/p in the 200s - increased after a dose of diltiazem iv - started on a cardene drip, now discontinued - optimization of her home meds, will started diltiazem and change amlodipine for procardia - telemetry monitoring - prn hydralazine afib in rvr - returned to nsr after diltiazem and digoxin - will continue with diltiazem po for rate control - on full AC with lovenox - 2d echo, last one echo on 04/2019 ef 60-65 with mod MR and mod to severe TR - cardiology consult hx of tia - continue asa and statin for secondary prevention hld - continue statin
[2020-04-27 05:00] LABS: Troponin I 0.045 ng/mL (< 0.028)
[2020-04-27 08:49] LABS: SARS-CoV-2 MS2 Positive; SARS-CoV-2 N Gene Negative; SARS-CoV-2 S Gene Negative; SARS-CoV-2 by NAA Not Detected (NotDetected); SARS-CoV-2 orf1ab Negative
[2020-04-27] MEDS ORDERED: cloNIDine 0.1 MG TAB ONE (09:00)
[2020-04-27] MEDS ORDERED: Enoxaparin Sodium 60 MG/0.6 ML SYRINGE ONE (09:00)
[2020-04-27] MEDS ORDERED: Losartan 25 MG TAB PO SCH ×2 (09:00→15:45)
[2020-04-27] MEDS ORDERED: Furosemide 40 MG TAB ONE (09:00)
[2020-04-27] MEDS ORDERED: Aspirin Chewable 81 MG TAB ONE (09:00)
[2020-04-27] MEDS ORDERED: cloNIDine 0.1 MG TAB PO SCH (09:00)
[2020-04-27] MEDS ORDERED: Spironolactone 25 MG TAB PO SCH ×2 (09:00→15:45)
[2020-04-27] MEDS ORDERED: Potassium Chloride 10 MEQ TAB PO SCH (09:15)
[2020-04-27] MEDS: Enoxaparin Sodium 60 MG/0.6 ML SYRINGE SC SCH ×2 (10:04→20:45)
[2020-04-27] MEDS: Furosemide 20 MG TAB PO SCH (10:04)
[2020-04-27] MEDS: Aspirin 81 mg Enteric Coated Tablet PO SCH (10:04)
[2020-04-27] MEDS: hydrALAZINE 25 MG TAB PO SCH ×3 (11:32→20:45)
[2020-04-27 14:00] LABS: Albumin 3.8 g/dL (3.4-4.8); Anion Gap 16 mmol/L (10-20); BUN (Urea Nitrogen) 13 mg/dL (9.8-20.1); BUN/Creatinine Ratio 15.48; Calc. Creatinine Clearance 0 mL/min (70-130); Calcium 8.9 mg/dL (7.8-10.44); Carbon Dioxide 20 mmol/L (23-31); Chloride 109 mmol/L (98-107); Glucose 102 mg/dL (83-110); Phosphorus 2.3 mg/dL (2.3-4.7); Potassium 3.4 mmol/L (3.5-5.1); Sodium 142 mmol/L (136-145)
--- NOTE | 2020-04-27 16:07 | PDOC.HOSPP ---
- Subjective Encounter Date: 04/27/20 Encounter Time: 11:00 Subjective: Patient seen today with the medical student. She denies any headache or blindness this morning. However she had several days duration of intermittent blackout and headache bringing her to the ER for evaluation. I spent con siderable amount of time counseling on her regarding better blood pressure management. Patient states that she does take her medications regularly and her blood pressure is consistently high around 180 range. - Objective Vital Signs & Weight: Vital Signs (12 hours) Pulse BP 04/27/20 11:36 62 150/86 H 04/27/20 11:34 69 150/89 H 04/27/20 11:32 69 150/86 H Result Diagrams: 04/26/20 21:12 04/27/20 09:21 Hospitalist ROS - Medication Medications: Active Medications Generic Name Dose Route Start Last Admin Trade Name Freq PRN Reason Stop Dose Admin Aspirin 81 mg 04/27/20 09:00 04/27/20 10:04 Aspirin 81 Mg Enteric Coated Tablet PO 81 mg DAILY [place] Administration Clonidine 0.1 mg 04/27/20 09:00 04/27/20 10:04 Clonidine 0.1 Mg Tab PO 0.1 mg BID [place] Administration Diltiazem HCl 120 mg 04/27/20 09:00 04/27/20 11:36 Diltiazem Cd 120 Mg Cap PO 120 mg DAILY [place] Administration Enoxaparin Sodium 60 mg 04/27/20 09:00 04/27/20 10:04 Enoxaparin Sodium 60 Mg/0.6 Ml Syringe SC 60 mg 0900,2100 [place] Administration Furosemide 20 mg 04/27/20 09:00 04/27/20 10:04 Furosemide 20 Mg Tab PO 20 mg DAILY [place] Administration Hydralazine HCl 25 mg 04/27/20 09:00 04/27/20 11:32 Hydralazine 25 Mg Tab PO Not Given TID [place] Nifedipine 60 mg 04/27/20 09:00 04/27/20 11:34 Nifedipine Xl 60 Mg Tab PO Not Given DAILY [place] - Exam General Appearance: NAD, awake alert Eye: PERRL ENT: normocephalic atraumatic Neck: supple Heart: RRR, normal peripheral pulses Respiratory: CTAB, normal chest expansion Gastrointestinal: soft Neurological: cranial nerve grossly intact, no focal deficits Psychiatric: A&O x 3 Hosp A/P - Plan (1) Atrial fibrillation with rapid ventricular response Code(s): I48.91 - UNSPECIFIED ATRIAL FIBRILLATION Status: Acute (2) Dyslipidemia Code(s): E78.5 - HYPERLIPIDEMIA, UNSPECIFIED Status: Chronic (3) HTN (hypertension) Code(s): I10 - ESSENTIAL (PRIMARY) HYPERTENSION Status: Chronic (4) Peripheral vascular disease Code(s): I73.9 - PERIPHERAL VASCULAR DISEASE, UNSPECIFIED Status: Chronic (5) Hypertensive emergency Code(s): I16.1 - HYPERTENSIVE EMERGENCY Status: Resolved - Plan Plan: Case of an 80y/o female with the stated pmhx who present to hospital with hypertenive emergency and afib in rvr I spent considerable amount of time counseling on her regarding better blood pressure management. Patient states that she does take her medications regularly and her blood pressure is consistently high around 180 range. -Her blood pressure is improving with Cardizem and Procardia. -Patient is on clonidine-- may be would be a good time to DC it and titrate her other home bp medications at this time, as missing even a dose of clonidine wi ll cause rebound hypertension. -We will request to the breaker engineer to look into it to continue the optimal blood pressure management in the outpatient setting. afib in rvr - returned to nsr after diltiazem and digoxin - will continue with diltiazem po for rate control - on full AC with lovenox - 2d echo, last one echo on 04/2019 ef 60-65 with mod MR and mod to severe TR - cardiology consult hx of tia - continue asa and statin for secondary prevention
[2020-04-27] MEDS ORDERED: cloNIDine 0.1 MG TAB PO PRN (16:15)
--- NOTE | 2020-04-27 16:50 | CON ---
DATE OF CONSULTATION: 04/27/2020 SERVICE: Nephrology. REASON FOR CONSULTATION: Malignant hypertension. REQUESTING PHYSICIAN: Desirae Holley MD HISTORY OF PRESENT ILLNESS: An 80-year-old female with known history of hypertension, prior TIA, and peripheral vascular disease, status post stent placement who presented to the hospital with episodic palpitations associated with chest discomfort. The patient also reported episodes of blackout. On presentation to the emergency room, the patient was found to have markedly elevated blood pressure with systolic above 180s. She also was found to be in atrial fibrillation with rapid ventricular response with heart rate in 130s. The patient was treated with Cardizem IV bolus as well as digoxin bolus with conversion to sinus rhythm. However, blood pressure shoot up from 180s on presentation to 260s, hence Cardene infusion was started. There was no associated shortness of breath, nausea, vomiting, abdominal pain, or diaphoresis. The patient reportedly has hypertension for a long time and reported that on one occasion, blood pressure was in 300s. Symptoms have improved and she feels more comfortable. PAST MEDICAL HISTORY: 1. Hypertension. 2. Dyslipidemia. 3. COPD. 4. Valvular heart disease. 5. Prior history of TIA. 6. Peripheral vascular disease, status post stent placement. PAST SURGICAL HISTORY: 1. Percutaneous angioplasty to both lower extremity with stent placement. 2. Cholecystectomy. FAMILY HISTORY: Significant for cardiac disorder and hypertension in relatives. SOCIAL HISTORY: The patient is a former smoker. Quit about 7 years ago. Denied alcohol or recreational drug use. Currently lives with family. ALLERGIES: NO KNOWN DRUG ALLERGY REPORTED. PRIOR TO HOSPITAL MEDICATIONS: 1. Hydralazine 25 mg p.o. t.i.d. 2. Losartan 50 mg p.o. daily. 3. Pravastatin 10 mg p.o. daily at bedtime. 4. Amlodipine 5 mg p.o. daily. 5. Furosemide 20 mg daily. 6. Pepcid 20 mg daily at bedtime. 7. Spironolactone 25 mg p.o. daily. 8. Aspirin 81 mg p.o. daily. 9. Clonidine 0.1 mg p.o. b.i.d. CURRENT HOSPITAL MEDICATIONS: As follows; 1. Aspirin 81 mg p.o. daily. 2. Clonidine 0.1 mg p.o. b.i.d. 3. Diltiazem 120 mg p.o. daily. 4. Lovenox 60 mg b.i.d. 5. Lasix 20 mg daily. 6. Hydralazine 25 mg p.o. t.i.d. 7. Losartan 50 mg p.o. daily. 8. Nifedipine 60 mg p.o. daily. 9. Spironolactone 25 mg p.o. daily. REVIEW OF SYSTEMS: Twelve-point review of systems was performed and was negative other than pertinent positives and negatives included in the history of present illness. PHYSICAL EXAMINATION: VITAL SIGNS: Pulse 62, respiratory rate 18, BP 150/86. GENERAL: Comfortable elderly female, in no obvious distress. Afebrile. Anicteric. Acyanotic. HEENT: Normocephalic, atraumatic. Oral mucosa is moist. NECK: Supple with no JVD. CARDIOVASCULAR: Regular rhythm and rate with normal heart sounds 1 and 2. Systolic murmur noted. RESPIRATORY: Fair air entry bilaterally with few transmitted breath sounds, but no obvious rhonchi or use of accessory muscles. GASTROINTESTINAL: Full, soft, nontender, and nondistended with normal bowel sounds. EXTREMITIES: Grossly normal, looking atraumatic with no obvious edema or erythema. CENTRAL NERVOUS SYSTEM: Conscious, alert, and oriented x3 with appropriate mental status. Cranial nerves 2 through 12 are grossly intact. The patient moves all extremities. DIAGNOSTIC DATA: Chemistry today showed sodium 142, potassium 3.4, chloride 109, CO2 of 20, BUN 13, creatinine 0.84, glucose 102, calcium 8.9, phosphorus 2.3, albumin 3.8. On presentation yesterday, sodium was 143, potassium 3.3, chloride 107, CO2 of 22, BUN 16, creatinine 0.92, glucose 124, calcium 9.4, total bilirubin 0.4, AST 25, ALT 22, alkaline phosphatase 187, total protein 8.2, albumin 4.5, globulin 3.2. Troponin showed marginal elevation from 0.02 on presentation to a peak of 0.55. CBC on presentation showed WBC count of 10.0, hemoglobin of 16.0, MCV of 90.5, and platelet of 195. Urinalysis on presentation showed clear colorless urine with pH of 7.5; specific gravity of 1.006; urine protein 20; negative ketone, blood, nitrite, bilirubin, and leukocyte esterase. CT scan angiogram of the chest with and without contrast showed fatty liver, but no central or segmental pulmonary embolism. 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 Stable scattered emphysema also was noted. ASSESSMENT: 1. Malignant hypertension: The association with hypokalemia is concerning for primary hyperaldosteronism. The patient, however, is on spironolactone prior to hospitalization, but I could not see any prior evaluation with plasma aldosterone renin ratio. Blood pressures have improved with commencement of oral medication. 2. Paroxysmal atrial fibrillation. 3. Hypertensive heart disease with diastolic dysfunction. 4. 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 5. Metabolic acidosis. 6. Hypokalemia. PLAN: 1. We will increase losartan to 100 mg p.o. daily. 2. We will also increase the spironolactone to 50 mg p.o. daily and plan to increase dose to get potassium up to 4.5 to 5. 3. Agree with hydralazine. With improvement of hypertension, we will plan to wean the patient off clonidine due to associated rebound hypertension. The patient can also be treated with 3 agents including beta-monse, losartan, and nifedipine. 4. We will recheck renal function in the morning. Further treatment to follow depending on hospital course. Job ID: [id number]
--- NOTE | 2020-04-27 17:48 | CON ---
DATE OF CONSULTATION: HISTORY OF PRESENT ILLNESS: Marina Melton is an 80-year-old female with history of peripheral vascular disease (treated by Dr. Liu), hypertension, and hypercholesterolemia, who has noted palpitations over the last three months. She would feel her heart beating very rapidly and this would last approximately 1 hour. She denies any such significant shortness of breath with this, but at times she would feel a fullness in her throat. Also at times, she would feel very lightheaded and feels as if she would pass out, but has not had any true syncope. She had an episode yesterday that lasted over 2 hours, so she decided to come to the emergency room. She was in atrial fibrillation with fast ventricular response of 136 per minute. She was given intravenous diltiazem 20 mg and digoxin 0.5 mg intravenously. Magnesium intravenously was given and she was given 500 mL of fluid. She then converted to sinus rhythm. Her presenting blood pressure was 179/65. After she converted to sinus rhythm, her blood pressure was 257/107 and 264/110. She was then placed on a Cardene drip, which has since been weaned and discontinued. PAST MEDICAL HISTORY: Hypertension, hypercholesterolemia, and peripheral vascular disease. No history of diabetes. OPERATIONS: She had a stent placed in her left leg as well as redo DRESS FINISHER of this. The stents were placed in October 2013 and the DRESS FINISHER [place] [address] Liu. MEDICATIONS: 1. Amlodipine 2.5 mg daily. 2. Aspirin 81 daily. 3. Clonidine 0.1 mg b.i.d. p.r.n. 4. Famotidine at bedtime. 5. Furosemide 20 mg q.a.m. 6. Apresoline 25 t.i.d. 7. Losartan 25 daily. 8. Pravastatin 10 daily. 9. Spironolactone 25 daily. ALLERGIES: NONE. SOCIAL HISTORY: She is a former smoker. PHYSICAL EXAMINATION: VITAL SIGNS: Blood pressure 150/86 and pulse 64, sinus rhythm on the monitor. HEENT: PERRL. NECK: Supple. CHEST: Clear. CARDIAC: S1 and S2 normal without any S3, S4, or murmurs. Carotid upstrokes normal without bruits. ABDOMEN: Normal bowel sounds. EXTREMITIES: Revealed no clubbing, cyanosis, or edema. NEUROLOGIC: Grossly intact. SKIN: Warm and dry. LABORATORY DATA: EKG reveals atrial fibrillation with fast ventricular response and then sinus rhythm and is normal. CBC is unremarkable. Troponin I 0.055. Sodium 143, potassium 3.3, chloride 107, carbon dioxide 22, BUN 16, creatinine 0.95, and glucose 124. BNP 277.3. TSH is normal. Urinalysis is unremarkable. COVID is negative. IMPRESSION: 1. Paroxysmal atrial fibrillation over the last three months, converted with intravenous Cardizem and intravenous digoxin. 2. Non-ST segment elevation myocardial infarction, type 2. 3. Hypertension. 4. Hypercholesterolemia. 5. Peripheral vascular disease, status post left leg intervention. 6. Former smoker. RECOMMENDATIONS: Echocardiogram will be performed to assess left ventricular function. Also with some throat tightness with this, adenosine Cardiolite will be performed. She will be anticoagulated with Lovenox for now. She will eventually be placed on anticoagulation since her CHADS-VASc score is greater than 2. She has no history of falls or gastrointestional bleeding. This willbe started once we are certain that an invasive evaluation is not needed. Fasting lipid profile will be performed. Final medications will be determined by the echocardiogram. Job ID: [id number] [facility]iff[facility]
[2020-04-27 18:11] VITALS: BMI 27.1
[2020-04-27] MEDS: Simvastatin 5 MG TAB PO SCH (20:45)
[2020-04-28 05:15] LABS: ALT (SGPT) 12 U/L (8-55); AST (SGOT) 19 U/L (5-34); Albumin 3.6 g/dL (3.4-4.8); Alkaline Phosphatase 143 U/L (40-110); Anion Gap 15 mmol/L (10-20); BUN (Urea Nitrogen) 17 mg/dL (9.8-20.1); Bilirubin, Total 0.7 mg/dL (0.2-1.2); Calc. Creatinine Clearance 48 mL/min (70-130); Calcium 8.9 mg/dL (7.8-10.44); Carbon Dioxide 21 mmol/L (23-31); Cardiac Risk 3.1 (Less than 4.5); Chloride 108 mmol/L (98-107); Cholesterol 155 mg/dl (< 200 Desired); Globulin 3.1 g/dL (2.4-3.5); Glucose 113 mg/dL (83-110); HDL Cholesterol 50 mg/dL (>60 Neg Risk); LDL Cholesterol, Calculated 82 mg/dL; Magnesium 2.1 mg/dL (1.6-2.6); Potassium 3.8 mmol/L (3.5-5.1); Protein, Total 6.7 g/dL (6.0-8.3); Sodium 140 mmol/L (136-145); Triglycerides 117 mg/dL (Less than 150)
[2020-04-28 05:18] LABS: Eosinophils 4 % (0-10); Hemoglobin 14.4 g/dL (12.0-16.0); Lymphocytes 42 % (21-51); MDiff Complete? YES; Mean Corpuscular HGB CONC 33.6 g/dL (32.0-36.0); Mean Corpuscular Hemoglobin 31.4 pg (27.0-31.0); Mean Corpuscular Volume 93.6 fL (78.0-98.0); Mean Platelet Volume 10.1 fL (7.4-10.4); Monocytes 6 % (0-10); Neutrophil 48 % (42-75); Platelet Count 198 thou/uL (130-400); Platelet Morphology Comment Appears Adequate; RBC Distribution Width 12.4 % (11.5-14.5); Red Blood Cell (RBC) Count 4.57 mill/uL (4.20-5.40); White Blood Cell (WBC) Count 7.5 thou/uL (4.8-10.8)
[2020-04-28] MEDS ORDERED: Metoprolol Tartrate 25 MG TAB PO SCH (09:00)
[2020-04-28] MEDS: Furosemide 20 MG TAB PO SCH (11:50)
[2020-04-28] MEDS: Losartan 25 MG TAB PO SCH (11:50)
[2020-04-28] MEDS: NIFEdipine XL 90 MG TAB PO SCH (11:51)
[2020-04-28] MEDS: Spironolactone 25 MG TAB PO SCH (11:51)
[2020-04-28] MEDS: Aspirin 81 mg Enteric Coated Tablet PO SCH (11:52)
[2020-04-28] MEDS: Enoxaparin Sodium 60 MG/0.6 ML SYRINGE SC SCH (11:52)
[2020-04-28] MEDS ORDERED: Metoprolol Tartrate 50 MG TAB PO SCH (13:00)
[2020-04-28] MEDS ORDERED: Diltiazem HCl 125 MG, Admixture Fee 1 EACH in Sodium Chloride 0.9% 100 ML IVPB SCH (13:15)
--- NOTE | 2020-04-28 13:33 | PDOC.HOSPP ---
- Subjective Encounter Date: 04/28/20 Encounter Time: 11:13 Subjective: Patient returned from stress test which has been canceled. Plan to get the cath tomorrow keep her n.p.o. tonight. She got into A. fib with RVR. Is started on a Cardizem drip. Appreciate the help from Dr. Alexis. - Objective Vital Signs & Weight: Vital Signs (12 hours) Temp Pulse Resp BP BP Pulse Ox 04/28/20 13:09 151/64 H 04/28/20 11:51 76 228/91 H 04/28/20 11:28 98.3 F 77 17 228/91 H 96 04/28/20 07:05 99.3 F 71 16 141/70 H 96 04/28/20 03:39 98.7 F 65 16 139/66 94 L Weight Weight 139 lb 14.4 oz I&O: 04/27/20 04/28/20 04/29/20 06:59 06:59 06:59 Intake Total 200 Output Total 350 Balance -150 Result Diagrams: 04/28/20 04:39 04/28/20 04:39 Hospitalist ROS - Medication Medications: Active Medications Generic Name Dose Route Start Last Admin Trade Name Freq PRN Reason Stop Dose Admin Aspirin 81 mg 04/27/20 09:00 04/28/20 11:52 Aspirin 81 Mg Enteric Coated Tablet PO 81 mg DAILY [place] Administration Enoxaparin Sodium 60 mg 04/27/20 09:00 04/28/20 11:52 Enoxaparin Sodium 60 Mg/0.6 Ml Syringe SC 60 mg 0900,2100 [place] Administration Furosemide 20 mg 04/27/20 09:00 04/28/20 11:50 Furosemide 20 Mg Tab PO 20 mg DAILY [place] Administration Hydralazine HCl 10 mg 04/27/20 03:41 04/28/20 12:46 Hydralazine 20 Mg/Ml Vial SLOW IVP 10 mg Q4H PRN Administration SBP > 180 Losartan Potassium 100 mg 04/28/20 09:00 04/28/20 11:50 Losartan 25 Mg Tab PO 100 mg DAILY [place] Administration Metoprolol Tartrate 50 mg 04/28/20 13:00 04/28/20 13:08 Metoprolol Tartrate 50 Mg Tab PO 04/28/20 15:00 50 mg NOW [place] Administration Nifedipine 90 mg 04/28/20 09:00 04/28/20 11:51 Nifedipine Xl 90 Mg Tab PO 90 mg DAILY [place] Administration Simvastatin 5 mg 04/27/20 21:00 04/27/20 20:45 Simvastatin 5 Mg Tab PO 5 mg HS [place] Administration Spironolactone 50 mg 04/28/20 09:00 04/28/20 11:51 Spironolactone 25 Mg Tab PO 50 mg DAILY [place] Administration - Exam General Appearance: NAD, awake alert Eye: PERRL, anicteric sclera ENT: normocephalic atraumatic Neck: supple Heart: irregular Respiratory: CTAB, normal chest expansion Gastrointestinal: soft, normal bowel sounds Neurological: cranial nerve grossly intact, no focal deficits Psychiatric: A&O x 3 Hosp A/P - Plan (1) Atrial fibrillation with rapid ventricular response Code(s): I48.91 - UNSPECIFIED ATRIAL FIBRILLATION Status: Acute (2) Dyslipidemia Code(s): E78.5 - HYPERLIPIDEMIA, UNSPECIFIED Status: Chronic (3) HTN (hypertension) Code(s): I10 - ESSENTIAL (PRIMARY) HYPERTENSION Status: Chronic (4) Peripheral vascular disease Code(s): I73.9 - PERIPHERAL VASCULAR DISEASE, UNSPECIFIED Status: Chronic (5) Hypertensive emergency Code(s): I16.1 - HYPERTENSIVE EMERGENCY Status: Resolved - Plan Plan: Case of an 80y/o female with the stated pmhx who present to hospital with hypertenive emergency and afib in rvr I spent considerable amount of time counseling on her regarding better blood pressure management. Patient states that she does take her medications regularly and her blood pressure is consistently high around 180 range. -Her blood pressure is improving with Cardizem and Procardia. -Patient is on clonidine-- may be would be a good time to DC it and titrate her other home bp medications at this time, as missing even a dose of clonidine will cause rebound hypertension. -We will request to the telephonic nurse to look into it to continue the optimal blood pressure management in the outpatient setting. afib in rvr - returned to nsr after diltiazem and digoxin - will continue with diltiazem po for rate control - on full AC with lovenox - 2d echo, last one echo on 04/2019 ef 60-65 with mod MR and mod to severe TR - cardiology consult hx of tia - continue asa and statin for secondary prevention 2nd Plan for cath tomorrow keep her n.p.o. midnight. A. fib with RVR. -Cardizem drip started today. She is also on Lopressor 50 twice daily and Procardia. Hypertension Her blood pressure reading was quite high with a systolic over 200 and it seems to be improving lately.
--- NOTE | 2020-04-28 16:22 | NM ---
Exam: Nuclear medicine cardiac SPECT with single study. TECHNIQUE: Rest only images were performed. Stress portion canceled per Dr. Alexis. Patient was adm inistered 9 mm of technetium 99m sestamibi intravenously. FINDINGS: There appears to be homogeneous distribution of radiotracer. IMPRESSION: Homogeneous distribution of the radiotracer on the sagittal images.
[2020-04-28] MEDS ORDERED: Communication Order-Pharmacy FS SCH (16:30)
--- NOTE | 2020-04-28 19:53 | PDOC.NEPPN ---
- Subjective Encounter Date: 04/28/20 Subjective: Seen earlier today. Comfortable. Later developed atrial fib with RVR requiring cardizem infusion. - Objective Vital Signs & Weight: Vital Signs (12 hours) Temp Pulse Resp BP BP Pulse Ox 04/28/20 16:33 98.7 F 51 L 16 123/60 95 04/28/20 13:09 151/64 H 04/28/20 11:51 76 228/91 H 04/28/20 11:28 98.3 F 77 17 228/91 H 96 Weight Weight 139 lb 14.4 oz I&O: 04/27/20 04/28/20 04/29/20 06:59 06:59 06:59 Intake Total 200 720 Output Total 350 Balance -150 720 Result Diagrams: 04/28/20 04:39 04/28/20 04:39 Nephrology ROS - Medication Medications: Active Medications Generic Name Dose Route Start Last Admin Trade Name Freq PRN Reason Stop Dose Admin Acetaminophen 650 mg 04/27/20 03:35 04/28/20 13:48 Acetaminophen 325 Mg Tab PO 650 mg Q4H PRN Administration Headache/Fever/Mild Pain (1-3) Aspirin 81 mg 04/27/20 09:00 04/28/20 11:52 Aspirin 81 Mg Enteric Coated Tablet PO 81 mg DAILY [place] Administration Furosemide 20 mg 04/27/20 09:00 04/28/20 11:50 Furosemide 20 Mg Tab PO 20 mg DAILY [place] Administration Hydralazine HCl 10 mg 04/27/20 03:41 04/28/20 12:46 Hydralazine 20 Mg/Ml Vial SLOW IVP 10 mg Q4H PRN Administration SBP > 180 Diltiazem HCl 125 mg/ 125 mls @ 5 mls/hr 04/28/20 13:15 04/28/20 13:48 Miscellaneous Medication 1 IVPB 125 mls each/ Sodium Chloride INF [place] Administration Protocol As Directed Losartan Potassium 100 mg 04/28/20 09:00 04/28/20 11:50 Losartan 25 Mg Tab PO 100 mg DAILY [place] Administration Nifedipine 90 mg 04/28/20 09:00 04/28/20 11:51 Nifedipine Xl 90 Mg Tab PO 90 mg DAILY [place] Administration Simvastatin 5 mg 04/27/20 21:00 04/27/20 20:45 Simvastatin 5 Mg Tab PO 5 mg HS [place] Administration Spironolactone 50 mg 04/28/20 09:00 04/28/20 11:51 Spironolactone 25 Mg Tab PO 50 mg DAILY [place] Administration - Exam General Appearance: awake alert Eye: anicteric sclera ENT: normocephalic atraumatic, moist mucosa Neck: supple, no JVD Respiratory: no wheezes, no rales, no ronchi, normal chest expansion Cardiovascular: RRR, murmur present Gastrointestinal: soft, non-tender, non-distended Extremities: no edema Neurological: CN's grossly intact, no focal deficits PSYCH: A&O x 3 Nephrology Results - Labs Result Diagrams: 04/28/20 04:39 04/28/20 04:39 Lab results: WBC 7.5 thou/uL (4.8-10.8) 04/28/20 04:39 Hgb 14.4 g/dL (12.0-16.0) 04/28/20 04:39 Hct 42.8 % (36.0-47.0) 04/28/20 04:39 MCV 93.6 fL (78.0-98.0) 04/28/20 04:39 Plt Count 198 thou/uL (130-400) 04/28/20 04:39 Neutrophils % 56.9 % (42.0-75.0) 04/26/20 21:12 Sodium 140 mmol/L (136-145) 04/28/20 04:39 Potassium 3.8 mmol/L (3.5-5.1) 04/28/20 04:39 Chloride 108 mmol/L (98-107) H 04/28/20 04:39 Carbon Dioxide 21 mmol/L (23-31) L 04/28/20 04:39 BUN 17 mg/dL (9.8-20.1) 04/28/20 04:39 Creatinine 0.93 mg/dL (0.6-1.1) 04/28/20 04:39 Glucose 113 mg/dL (83-110) H 04/28/20 04:39 Calcium 8.9 mg/dL (7.8-10.44) 04/28/20 04:39 Total Bilirubin 0.7 mg/dL (0.2-1.2) 04/28/20 04:39 AST 19 U/L (5-34) 04/28/20 04:39 ALT 12 U/L (8-55) 04/28/20 04:39 Alkaline Phosphatase 143 U/L (40-110) H 04/28/20 04:39 Creatine Kinase 130 U/L (29-168) 04/26/20 21:11 Troponin I 0.045 ng/mL (< 0.028) H 04/27/20 04:16 B-Natriuretic Peptide 277.3 pg/mL (0-100) H 04/26/20 21:12 Serum Total Protein 6.7 g/dL (6.0-8.3) 04/28/20 04:39 Albumin 3.6 g/dL (3.4-4.8) 04/28/20 04:39 Lipase 34 U/L (8-78) 04/26/20 21:11 Urine Ketones Negative mg/dL (Negative) 04/26/20 21:44 Urine Blood Negative (Negative) 04/26/20 21:44 Urine Nitrite Negative (Negative) 04/26/20 21:44 Ur Leukocyte Esterase Negative Flvaio/uL (Negative) 04/26/20 21:44 Sodium 140 mmol/L (136-145) 04/28/20 04:39 Potassium 3.8 mmol/L (3.5-5.1) 04/28/20 04:39 Chloride 108 mmol/L (98-107) H 04/28/20 04:39 Carbon Dioxide 21 mmol/L (23-31) L 04/28/20 04:39 Anion Gap 15 mmol/L (10-20) 04/28/20 04:39 BUN 17 mg/dL (9.8-20.1) 04/28/20 04:39 Creatinine 0.93 mg/dL (0.6-1.1) 04/28/20 04:39 Glucose 113 mg/dL (83-110) H 04/28/20 04:39 Calcium 8.9 mg/dL (7.8-10.44) 04/28/20 04:39 Phosphorus 2.3 mg/dL (2.3-4.7) 04/27/20 09:21 Magnesium 2.1 mg/dL (1.6-2.6) 04/28/20 04:39 Albumin 3.6 g/dL (3.4-4.8) 04/28/20 04:39 Nephrology AP PN - Plan Malignant HTN: Patient admitted missing her medications atimes. BP control is acceptable. Non compliance with associated rebound is a concern. Will transition patient away from clonidine. She can be treated with 3 agents Will increase nifedipine to 90 mg daily. Continue losartan 100 daily and substitute cardizem with metoprolol given hypertensive cardiac disease noted on echo. Can adjust currnet medications to get adequate BP control. Will DC hydralazine and change clonidine to prn. as discontinuing clodinine completely will lead to rebound HTN. Further treatment as per Cardiology. Will sign off.
[2020-04-28] MEDS: Simvastatin 5 MG TAB PO SCH (20:28)
[2020-04-28] MEDS: Metoprolol Tartrate 50 MG TAB PO SCH (22:30)
[2020-04-29] MEDS ORDERED: Sodium Chloride 0.9% 1,000 ML IV SCH ×2 (06:00→07:39)
[2020-04-29] MEDS: NIFEdipine XL 90 MG TAB PO SCH (06:20)
[2020-04-29] MEDS: Losartan 25 MG TAB PO SCH (06:21)
[2020-04-29] MEDS: Spironolactone 25 MG TAB PO SCH (06:21)
[2020-04-29] MEDS: Aspirin 81 mg Enteric Coated Tablet PO SCH (06:21)
[2020-04-29] MEDS: Metoprolol Tartrate 50 MG TAB PO SCH ×2 (06:22→20:26)
[2020-04-29] MEDS: Furosemide 20 MG TAB PO SCH (06:22)
[2020-04-29] MEDS ORDERED: Heparin 10,000 UNITS/ 10 ML VIAL ONE (06:39)
[2020-04-29] MEDS ORDERED: Fentanyl 100 MCG/2 ML VIAL ONE (07:05)
[2020-04-29] MEDS ORDERED: Midazolam HCl 2 mg/2 ml Vial ONE (07:05)
[2020-04-29] MEDS ORDERED: Protamine Sulfate 50 MG/5 ML VIAL ONE (07:22)
[2020-04-29] MEDS ORDERED: Nitroglycerin 0.4 MG TAB (25 Tab Bottle) SL PRN (07:37)
[2020-04-29] MEDS ORDERED: Sodium Chloride 0.9% 200 ML IV PRN (07:37)
[2020-04-29] MEDS ORDERED: Acetaminophen/Codeine 30-300mg Tablet PO PRN ×2 (07:37)
[2020-04-29] MEDS: Dronedarone HCl 400 MG TAB PO SCH ×2 (09:03→17:12)
--- NOTE | 2020-04-29 12:35 | PDOC.HOSPP ---
- Subjective Encounter Date: 04/29/20 Encounter Time: 11:20 Subjective: Patient returned from cath. It appears she may have nonobstructive coronary artery disease. Report pending. Family at bedside. - Objective Vital Signs & Weight: Vital Signs (12 hours) Temp Pulse Resp BP BP Pulse Ox 04/29/20 11:24 98.0 F 55 L 17 128/60 95 04/29/20 08:25 96 04/29/20 08:00 97.7 F 57 L 17 155/71 H 95 04/29/20 06:20 98.6 F 68 20 182/82 H 182/82 H 96 Weight Weight 137 lb 8 oz I&O: 04/28/20 04/29/20 04/30/20 06:59 06:59 06:59 Intake Total 200 1040 Output Total 350 900 Balance -150 140 Result Diagrams: 04/28/20 04:39 04/28/20 04:39 Hospitalist ROS - Medication Medications: Active Medications Generic Name Dose Route Start Last Admin Trade Name Freq PRN Reason Stop Dose Admin Acetaminophen 650 mg 04/27/20 03:35 04/28/20 13:48 Acetaminophen 325 Mg Tab PO 650 mg Q4H PRN Administration Headache/Fever/Mild Pain (1-3) Aspirin 81 mg 04/27/20 09:00 04/29/20 06:21 Aspirin 81 Mg Enteric Coated Tablet PO 81 mg DAILY [place] Administration Dronedarone 400 mg 04/29/20 08:00 04/29/20 09:03 Dronedarone Hcl 400 Mg Tab PO 400 mg BID-WM [place] Administration Furosemide 20 mg 04/27/20 09:00 04/29/20 06:22 Furosemide 20 Mg Tab PO 20 mg DAILY [place] Administration Hydralazine HCl 10 mg 04/27/20 03:41 04/28/20 12:46 Hydralazine 20 Mg/Ml Vial SLOW IVP 10 mg Q4H PRN Administration SBP > 180 Diltiazem HCl 125 mg/ 125 mls @ 5 mls/hr 04/28/20 13:15 04/28/20 13:48 Miscellaneous Medication 1 IVPB 125 mls each/ Sodium Chloride INF [place] Administration Protocol As Directed Sodium Chloride 1,000 mls @ 125 mls/hr 04/29/20 07:39 04/29/20 09:02 Normal Saline 0.9% IV 04/29/20 13:30 1,000 mls .Q8H [place] Administration Losartan Potassium 100 mg 04/28/20 09:00 04/29/20 06:21 Losartan 25 Mg Tab PO 100 mg DAILY [place] Administration Metoprolol Tartrate 50 mg 04/28/20 21:00 04/29/20 06:22 Metoprolol Tartrate 50 Mg Tab PO 50 mg BID [place] Administration Nifedipine 90 mg 04/28/20 09:00 04/29/20 06:20 Nifedipine Xl 90 Mg Tab PO 90 mg DAILY [place] Administration Sodium Chloride 10 ml 04/29/20 09:00 04/29/20 09:03 Flush - Normal Saline 10 Ml Syringe IVF 10 ml Q12HR [place] Administration Spironolactone 50 mg 04/28/20 09:00 04/29/20 06:21 Spironolactone 25 Mg Tab PO 50 mg DAILY [place] Administration - Exam General Appearance: NAD, awake alert Eye: PERRL ENT: normocephalic atraumatic Neck: supple Heart: RRR, normal peripheral pulses Respiratory: CTAB, normal chest expansion Gastrointestinal: soft, normal bowel sounds Neurological: no focal deficits Hosp A/P - Plan (1) Atrial fibrillation with rapid ventricular response Code(s): I48.91 - UNSPECIFIED ATRIAL FIBRILLATION Status: Acute (2) Dyslipidemia Code(s): E78.5 - HYPERLIPIDEMIA, UNSPECIFIED Status: Chronic (3) HTN (hypertension) Code(s): I10 - ESSENTIAL (PRIMARY) HYPERTENSION Status: Chronic (4) Peripheral vascular disease Code(s): I73.9 - PERIPHERAL VASCULAR DISEASE, UNSPECIFIED Status: Chronic (5) Hypertensive emergency Code(s): I16.1 - HYPERTENSIVE EMERGENCY Status: Resolved - Plan Plan: Case of an 80y/o female with the stated pmhx who present to hospital with hypertenive emergency and afib in rvr I spent considerable amount of time counseling on her regarding better blood pressure management. Patient states that she does take her medications regularly and her blood pressure is consistently high around 180 range. -Her blood pressure is improving with Cardizem and Procardia. -Patient is on clonidine-- may be would be a good time to DC it and titrate her other home bp medications at this time, as missing even a dose of clonidine will cause rebound hypertension. -We will request to the junior data analyst to look into it to continue the optimal blood pressure management in the outpatient setting. afib in rvr - returned to nsr after diltiazem and digoxin - will continue with diltiazem po for rate control - on full AC with lovenox -Echo showed EF of 65% moderate mitral regurgitation, mild aortic regurgitation. hx of tia - continue asa and statin for secondary prevention A. fib with RVR. 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 Nifedipine 90 mg daily losartan 100 mg daily and Lopressor 50 mg twice a day. Changed clonidine to as needed and discontinued hydralazine. Appreciate help from nephrology..
[2020-04-29] MEDS ORDERED: Iopamidol 370 76% 50 ML VIAL FS ONE (13:23)
[2020-04-29] MEDS ORDERED: Iopamidol 370 76% 100 ML VIAL ONE (13:23)
[2020-04-29] MEDS ORDERED: Atorvastatin Calcium 10 MG TAB PO SCH (21:00)
[2020-04-30] MEDS: Spironolactone 25 MG TAB PO SCH (08:32)
[2020-04-30] MEDS: Losartan 25 MG TAB PO SCH (08:32)
[2020-04-30] MEDS: Aspirin 81 mg Enteric Coated Tablet PO SCH (08:32)
[2020-04-30] MEDS: Dronedarone HCl 400 MG TAB PO SCH (08:33)
[2020-04-30] MEDS: NIFEdipine XL 90 MG TAB PO SCH (08:33)
[2020-04-30] MEDS: Metoprolol Tartrate 50 MG TAB PO SCH (08:33)
[2020-04-30] MEDS: Furosemide 20 MG TAB PO SCH (08:33)
[2020-04-30 11:18] VITALS: BP 142/65; TEMP 98
--- NOTE | 2020-04-30 12:39 | PDOC.DS.DS ---
Provider - Provider Date of Admission: 04/27/20 00:45 Admitting Provider: Quang Zamorano Primary Care Physician: Hermilo Elmore Course - Hospital Course Hospital Course: 80-year-old female presented with (1) Atrial fibrillation with rapid ventricular response Code(s): I48.91 - UNSPECIFIED ATRIAL FIBRILLATION Status: Acute (2) Dyslipidemia Code(s): E78.5 - HYPERLIPIDEMIA, UNSPECIFIED Status: Chronic (3) HTN (hypertension) Code(s): I10 - ESSENTIAL (PRIMARY) HYPERTENSION Status: Chronic (4) Peripheral vascular disease Code(s): I73.9 - PERIPHERAL VASCULAR DISEASE, UNSPECIFIED Status: Chronic (5) Hypertensive emergency Code(s): I16.1 - HYPERTENSIVE EMERGENCY Status: Resolved afib in rvr - returned to nsr after diltiazem and digoxin -Echo showed EF of 65% moderate mitral regurgitation, mild aortic regurgitation. -Started on Eliquis 5 twice daily. -Status post cath showing nonobstructive coronary artery disease. 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 Nifedipine 90 mg daily losartan 100 mg daily and Lopressor 50 mg twice a day. discontinued hydralazine and clonidine. Consults from cardiology as well as nephrology. Charge time over 30 minutes Resuscitation Status: 04/27/20 03:35 Resuscitation Status Routine Resuscitation Status: FULL: Full Resuscitation - Labs Lab Results: 04/28/20 04:39 04/28/20 04:39 - Physical Exam Vitals: Vital Signs (12 hours) Temp Pulse Resp BP Pulse Ox 04/30/20 11:16 98.0 F 50 L 17 142/65 H 95 04/30/20 08:33 71 04/30/20 07:35 98.9 F 71 17 186/81 H 95 04/30/20 03:51 98.5 F 61 18 149/67 H 94 L Weight Weight 140 lb Physical Exam: The patient was seen and examined on the day of discharge. Cardiopulmonary exam unremarkable Patient has no complaints this morning. Cardiology cleared her. She is comfortable going home today. Plan - Discharge Medications Prescriptions: Spironolactone [Aldactone] 50 mg PO DAILY 30 Days #30 tab Losartan [Cozaar] 100 mg PO DAILY 30 Days #30 tab Apixaban [Eliquis] 5 mg PO BID 30 Days #60 tab Atorvastatin Calcium [Lipitor] 10 mg PO HS 30 Days #30 tab NIFEdipine [Procardia XL] 90 mg PO DAILY 30 Days #90 tab Home Medications: Medication Instructions Recorded Confirmed Type Aspirin [Aspirin EC] 81 mg PO DAILY #30 tablet.dr 08/28/16 04/27/20 Rx Furosemide 20 mg PO DAILY 09/12/16 04/27/20 History Famotidine 1 tab PO HS 07/16/19 04/27/20 History Pravastatin Sodium 10 mg PO HS 07/16/19 04/27/20 History Apixaban [Eliquis] 5 mg PO BID 30 Days #60 tab 04/30/20 Rx Atorvastatin Calcium [Lipitor] 10 mg PO HS 30 Days #30 tab 04/30/20 Rx Losartan [Cozaar] 100 mg PO DAILY 30 Days #30 tab 04/30/20 Rx NIFEdipine [Procardia XL] 90 mg PO DAILY 30 Days #90 tab 04/30/20 Rx Spironolactone [Aldactone] 50 mg PO DAILY 30 Days #30 tab 04/30/20 Rx Allergies: No Known Drug Allergies Allergy (Verified 08/19/19 01:11) PER H&P - Discharge Instructions Nourishment:: Heart Healthy Diet - Follow up Plan Referrals: Hermilo Elmore MD [Primary Care Provider] - Disposition: HOME Quality - Care Measures CORE MEASURES:: N/A
[2020-04-30] MEDS ORDERED: Apixaban 5 MG TAB PO SCH (21:00)
--- NOTE | 2020-05-01 14:58 | EKG ---
Test Reason : Blood Pressure : / mmHG Vent. Rate : 136 BPM Atrial Rate : 127 BPM P-R Int : 000 ms QRS Dur : 068 ms QT Int : 282 ms P-R-T Axes : 000 022 -72 degrees QTc Int : 424 ms Atrial fibrillation with rapid ventricular response Abnormal ECG Confirmed by DORCAS MCKEON MD ([id number]), editor index ARUNA LOPEZ ([id number]) on 05/01/2020 2:57:40 PM Referred By: Confirmed By:DORCAS MCKEON MD
--- NOTE | 2020-05-03 23:14 | PQF ---
CLINICAL DOCUMENTATION CLARIFICATION FORM: Dear : Desirae Holley MD Date / Time: 05/03/2020 Please exercise your independent, professional judgment in responding to the clarification form. Clinical indicators are provided on the bottom of this form for your review Please check appropriate box(es) to clarify if the following diagnosis has been ruled in our ruled out: [ ] Ruled in NSTEMI [ ] Continue to treat [ ] Resolved [ ] Ruled out NSTEMI [ ] Improving [x ] Cannot rule out diagnosis [ ] Other diagnosis (Please specify if any) [ ] Unable to determine In addition, please specify: Present on Admission (POA): [ ] Yes [ ] No [ ] Unable to determine Physician Signature: Date/Time: For continuity of documentation, please document condition throughout progress notes and discharge summary. Thank You. To be completed by CDI/Coding staff for physician review: Present Clinical Indicators - Signs / Symptoms / Labs Results and Location in Medical Record [x] Non-ST segment myocardial infarction, type 2 Consult on 04/27 [x] Chest pain ED provider report on 04/27 [x] Episodic palpitations associated with chest discomfort Consult on 04/27 [x] Troponin-0.055H Laboratory on 04/27 Present Risk Factors Results and Location in Medical Record [x] Aged person 80 yrs ED provider report on 04/27 [x] Hypertension Consult on 04/27 [x] Hypertensive heart disease with diastolic dysfunction Consult on 04/27 [ ] Present Treatments Results and Location in Medical Record [x] Cardizem 25 mg Medication on 04/26 [x] Hydralazine 10 mg IV Medication on 04/27 [x] Lopressor 50 mg Medication on 04/28 [ ] CDS/Compensation Expert Signature: AAS Phone #: Date/Time: 05/03/2020 This is a permanent part of the Medical Record [facility]
== END 2020-04-30 14:40 | disposition home or self-care (01) | DRG 281 ==
LOC: ERS 20:36 → ERHOLD 04-27 00:45 → 2NO 04-27 17:51
PROVIDERS: ADMIT Internal Medicine; ATTEND Internal Medicine
PROC: B2111ZZ Fluoroscopy of Multiple Coronary Arteries using Low Osmolar Contrast (ICD-10-PCS; principal; 2020-04-29)
PROC: 4A023N7 Measurement of Cardiac Sampling and Pressure, Left Heart, Percutaneous Approach (ICD-10-PCS; 2020-04-29)
PROC: B2151ZZ Fluoroscopy of Left Heart using Low Osmolar Contrast (ICD-10-PCS; 2020-04-29)
DX: I16.1 Hypertensive emergency (principal); I21.A1 Myocardial infarction type 2; E87.2 Acidosis; I73.9 Peripheral vascular disease, unspecified; F41.9 Anxiety disorder, unspecified; E78.00 Pure hypercholesterolemia, unspecified; J44.9 Chronic obstructive pulmonary disease, unspecified; Z20.828 Contact with and (suspected) exposure to other viral communicable diseases; E87.6 Hypokalemia; I48.0 Paroxysmal atrial fibrillation; I11.0 Hypertensive heart disease with heart failure; I07.1 Rheumatic tricuspid insufficiency; I34.0 Nonrheumatic mitral (valve) insufficiency; Z86.73 Personal history of transient ischemic attack (TIA), and cerebral infarction without residual deficits; Z87.891 Personal history of nicotine dependence; Z79.899 Other long term (current) drug therapy; Z79.82 Long term (current) use of aspirin; Z90.49 Acquired absence of other specified parts of digestive tract; Z95.820 Peripheral vascular angioplasty status with implants and grafts
CPT/HCPCS: 36415; 71045; 71275; 78451; 80053; 80061; 80069; 81003; 82550; 83690; 83735; 83880; 84443; 84484; 85007; 85025; 85027; 85347; 85379; 87635; 93005; 93306; 93458; 94760; 96365; 96366; 96367; 96374; 96375; 99152; 99153; 99292; A9500; J0360; J1160; J1644; J1650; J2250; J2720; J3010; J3475; J3490; Q9967; U0003

== ENCOUNTER 2020-12-30 14:12 | Outpatient (CLI) | payer MEDICARE | END 2020-12-30 14:13 | disposition home or self-care (01) | LOC: BICCT 14:12 | PROVIDERS: ATTEND Family Medicine | DX: Z12.2 Encounter for screening for malignant neoplasm of respiratory organs (principal); Z87.891 Personal history of nicotine dependence; R91.8 Other nonspecific abnormal finding of lung field; I77.810 Thoracic aortic ectasia; I71.2 Thoracic aortic aneurysm, without rupture | CPT/HCPCS: 71271 ==

== ENCOUNTER 2021-03-25 08:02 | Outpatient (CLI) | payer MEDICARE | END 2021-03-25 08:03 | disposition home or self-care (01) | LOC: BICULT 08:02 | PROVIDERS: ATTEND Family Medicine | DX: N18.32 Chronic kidney disease, stage 3b (principal) | CPT/HCPCS: 76770; 93975 ==

== ENCOUNTER 2021-06-28 15:58 | Outpatient (CLI) | payer MEDICARE | END 2021-06-28 15:59 | disposition home or self-care (01) | LOC: BICCT 15:58 | PROVIDERS: ATTEND Family Medicine | DX: Z12.2 Encounter for screening for malignant neoplasm of respiratory organs (principal); F17.211 Nicotine dependence, cigarettes, in remission; I71.2 Thoracic aortic aneurysm, without rupture | CPT/HCPCS: 71271 ==

== ENCOUNTER 2022-05-10 12:08 | Outpatient (CLI) | payer MEDICARE | END 2022-05-10 12:09 | disposition home or self-care (01) | LOC: RAD 12:08 | PROVIDERS: ATTEND Nurse Practitioner Family | DX: R05.9 Cough, unspecified (principal); R09.89 Other specified symptoms and signs involving the circulatory and respiratory systems; I51.7 Cardiomegaly; M47.814 Spondylosis without myelopathy or radiculopathy, thoracic region; M43.8X4 Other specified deforming dorsopathies, thoracic region; Z95.0 Presence of cardiac pacemaker | CPT/HCPCS: 71046 ==

== ENCOUNTER 2022-12-01 11:28 | Outpatient (CLI) | payer MEDICARE | END 2022-12-01 11:29 | disposition home or self-care (01) | LOC: RAD 11:28 | PROVIDERS: ATTEND Specialist | DX: Z87.891 Personal history of nicotine dependence (principal) | CPT/HCPCS: 71046 ==

== ENCOUNTER 2023-04-02 00:05 | Emergency (ER) | payer MEDICARE ==
[2023-04-02 01:29] LABS: #Basophils 0.1 thou/uL (0.0-0.2); #Eosinphils 0.5 thou/uL (0.0-0.7); #Monocytes 0.7 thou/uL (0.11-0.59); #Neutrophils 4.8 thou/uL (1.40-6.50); %Basophils 1.1 % (0.0-1.0); %Eosinophils 5.5 % (0.0-10.0); %Lymphocytes 27.8 % (21.0-51.0); %Monocytes 8.6 % (0.0-10.0); %Neutrophils 56.8 % (42.0-75.0); Hematocrit 41.8 % (36.0-47.0); Hemoglobin 14.4 g/dL (12.0-16.0); Mean Corpuscular HGB CONC 34.4 g/dL (32.0-36.0); Mean Corpuscular Hemoglobin 33.2 pg (27.0-31.0); Mean Corpuscular Volume 96.3 fl (78.0-98.0); Mean Platelet Volume 11.4 fL (7.4-10.4); Platelet Count 220 10x3/uL (130-400); RBC Distribution Width 13.7 % (11.5-14.5); Red Blood Cell (RBC) Count 4.34 mill/uL (4.20-5.40); White Blood Cell (WBC) Count 8.5 10x3/uL (4.8-10.8)
[2023-04-02 01:53] LABS: ALT (SGPT) 20 U/L (8-55); AST (SGOT) 24 U/L (5-34); Albumin 4.6 g/dL (3.4-4.8); Alkaline Phosphatase 147 U/L (40-110); Anion Gap 17 mmol/L (10-20); BUN (Urea Nitrogen) 28 mg/dL (9.8-20.1); Bilirubin, Total 0.4 mg/dL (0.2-1.2); Calc. Creatinine Clearance 0 mL/min (70-130); Calcium 9.5 mg/dL (7.8-10.44); Carbon Dioxide 16 mmol/L (23-31); Chloride 111 mmol/L (98-107); Estimated GFR 42; Globulin 3.2 g/dL (2.4-3.5); Glucose 126 mg/dL (83-110); Magnesium 2.1 mg/dL (1.6-2.6); Potassium 4.6 mmol/L (3.5-5.1); Protein, Total 7.8 g/dL (5.8-8.1); Sodium 139 mmol/L (136-145)
[2023-04-02 01:56] LABS: Troponin I Less than 0.010 ng/mL (< 0.028)
[2023-04-02 01:59] LABS: Bacteria/HPF None Seen HPF (None Seen); Bilirubin Negative (Negative); Blood, Urine Negative (Negative); CAUTI Indications for Culture Dysuria,urgency,freq; Clarity Clear (Clear); Glucose, Urine (Dipstick) Normal (Negative); Ketone, Urine Negative (Negative); Leukocyte 500 Leu/uL (Negative); Nitrite Negative (Negative); Protein, Urine (Dipstick) Negative (Neg-Trace); RBC/HPF 0-3 HPF (0-3); Specific Gravity, Urine 1.005 (1.002-1.036); Squamous Epithelial 0-3 HPF (0-3); Urobilinogen Normal mg/dL (Less than 2); WBC/HPF 21-50 HPF (0-3); pH, Urine 6.5 (5.0-9.0)
[2023-04-02 02:00] LABS: Urine Culture Reflex Yes Yes
[2023-04-02 02:05] LABS: PTT 31.5 sec (22.9-36.1); Prothrombin Time 13.7 sec (12.0-14.7)
[2023-04-02] MEDS ORDERED: hydrALAZINE 20 MG/ML VIAL ONE (02:17)
[2023-04-02] MEDS ORDERED: Cephalexin 250 MG CAP ONE (05:09)
[2023-04-02] MEDS ORDERED: Iopamidol 370 76% 100 ML VIAL ONE (14:29)
== END 2023-04-02 05:14 | disposition home or self-care (01) ==
LOC: ERS 00:05
DX: I16.0 Hypertensive urgency (principal); N39.0 Urinary tract infection, site not specified; I10 Essential (primary) hypertension; Z79.82 Long term (current) use of aspirin; Z79.899 Other long term (current) drug therapy
CPT/HCPCS: 70496; 70498; 71045; 81001; 83735; 83880; 84484; 85610; 85730; 87086; 93005; J0360; 36415; 80053; 84443; 85025; 96374; Q9967